=== PATIENT | male | born 1985 | race Caucasian/White ===

== ENCOUNTER 2021-02-28 03:37 | Emergency (ER) | payer OTHER ==
[~2021-02-28] VITALS: Ht 170.2 cm; Wt 78.0 kg
[2021-02-28] MEDS ORDERED: ONDANSETRON 4MG ODT PO ONE (06:15)
[2021-02-28] MEDS ORDERED: MORPHINE SULFATE 10 MG/ML CPJ IM ONE (06:15)
[2021-02-28 07:52] VITALS: BP 124/78
== END 2021-02-28 08:38 | disposition home or self-care (01) ==
LOC: ER 03:37
DX: S03.01XA Dislocation of jaw, right side, initial encounter (principal); X58.XXXA Exposure to other specified factors, initial encounter; Y93.89 Activity, other specified; Y92.89 Other specified places as the place of occurrence of the external cause; Y99.8 Other external cause status
CPT/HCPCS: 21480; 70110; 96372; 99284; J2270; Q0162

== ENCOUNTER 2021-02-28 08:11 | Emergency (ER) | payer OTHER ==
[~2021-02-28] VITALS: Ht 167.6 cm; Wt 69.0 kg
[2021-02-28] MEDS ORDERED: ONDANSETRON HCL 4MG/2ML INJ IV STA (08:44)
[2021-02-28] MEDS ORDERED: MORPHINE SULFATE 4 MG/ML CPJ (NOT FOR IM USE) IV STA (08:44)
[2021-02-28] MEDS ORDERED: SODIUM CHLORIDE 0.9% 1,000 ML IV ONE (08:45)
[2021-02-28 09:06] VITALS: BP 126/74
== END 2021-02-28 09:11 | disposition home or self-care (01) ==
LOC: ER 08:11
DX: S03.01XA Dislocation of jaw, right side, initial encounter (principal); Z98.890 Other specified postprocedural states; V49.88XA Car occupant (driver) (passenger) injured in other specified transport accidents, initial encounter; Y93.89 Activity, other specified; Y92.89 Other specified places as the place of occurrence of the external cause; Y99.8 Other external cause status
CPT/HCPCS: 21480; 99284; J7030